=== PATIENT | male | born 1980 | race Caucasian/White ===

== ENCOUNTER 2017-01-07 11:31 | Inpatient (IN) | payer OTHER ==
[~2017-01-07] VITALS: Ht 182.9 cm; Wt 97.5 kg
--- NOTE | 2017-01-07 18:00 | NUR ---
Pre-admission Note: Patient is seen intake office at this time. Appears anxious. Alert and oriented x 4. Verbally responsive. Able to answer questions regarding the admission process appropriately. Able to verbalize understanding of the admission process and protocol. Reports NKA. Reports seizure 2 history, last one was 2 weeks ago. Patient was educated on the policies and procedures of the unit. VS: BP 153/117, Pulse 106, Temp 98.9, RR 16, O2 sat at RA 98%. Patient verbalizes complains of anxiety and nervousness. Reassurance provided and support provided. Notified MD Padgett of patient's pre-admission condition.
--- NOTE | 2017-01-07 18:40 | NUR ---
Body and Skin Check/MD Communication: Body search done. No contraband was found. Patient ambulated into the unit at this time. Skin check done. No skin breakdown noted. No lesions. No rashes noted. CIWA 11 upon arrival in the unit. Dr. Padgett was called. Awaiting call back.
--- NOTE | 2017-01-07 18:50 | NUR ---
Admission Note: Patient is a 36 year old male admitted for ETOH dependence under the care of Dr. Padgett. Alert and oriented x 4. Verbally responsive. Able to make needs known. Respirations even and unlabored. No SOB noted. Skin warm and dry to touch. Abdomen soft and non-distended. BS (+) in all 4 quadrants. No complains of N/V/D or constipation noted. Voids independently. Able to provide urine for UDS. Patient reports NKA. Has had a seizure, last one was 2 weeks ago and was sent to [facility] for less than 24 hours. Patient states that he forgot the name of the medication he was prescribed. Denies any history of substance abuse in the family. Denies any past medical hx. Patient reports that this is his first time in detox. " Substance Use: 1. ETOH (vodka) - since 14 years old. Patient drinks 750cc of Vodka a day for the past year. Last use was on 01/06/2017, 750cc of Vodka MD Padgett evaluated the patient in the intake office. Will continue to monitor. Safety precautions in place. On fall and seizure precautions. Addendum: 01/08/17 at 0942 by KATHLEEN HARE LVN Patient denies having a PCP.
--- NOTE | 2017-01-07 18:53 | NUR ---
End of Shift Notes: Patient is a 36 year old male admitted for ETOH dependence. CIWA 11 upon admission. New orders received from MD Padgett to receive Clonidine 0.1mg PO and Ativan 2 mg PO x 1 now. Orders noted and carried out.
[2017-01-07] MEDS ORDERED: LORAZEPAM 1 MG TABLET PO ONE (19:00)
[2017-01-07] MEDS ORDERED: CLONIDINE HCL 0.1 MG TABLET PO ONE (19:00)
--- NOTE | 2017-01-07 19:00 | NUR ---
MD Communication: UDS in with results pending. Patient's CIWA 11. Per MD, OK to give Ativan 2 mg PO and Clonidine 0.1mg PO now. Orders noted and carried out.
--- NOTE | 2017-01-07 19:03 | NUR ---
Ativan 2 mg PO and Clonidine 0.1mg PO given: CIWA 11 presented with anxiety, gross tremors and agitation. Medicated patient with Ativan 2 mg PO and Clonidine 0.1mg Po as ordered. Will monitor for effectiveness.
--- NOTE | 2017-01-07 19:04 | NUR ---
Start of shift note Received report from day shift nurse. Pt is a 36 yo male, A+Ox4, presenting to [facility] for ETOH dependence. Pt has NKA, is on Full code status, and on Regular diet. Pt has HX of Seizure 2 weeks ago. Pt is on Fall and Seizure precautions. Awaiting taper medication orders from MD but Pt is on PRN medications for the meantime. No s/s of distress noted at this time. Respirations even and unlabored. Will continue to monitor.
[2017-01-07 19:14] LABS: *AMPHETAMINE, URINE NEGATIVE (NEGATIVE); *BARBITURATE, URINE NEGATIVE (NEGATIVE); *CANNABINOID, URINE NEGATIVE (NEGATIVE); *COCCAINE, URINE NEGATIVE (NEGATIVE); *OPIATE, URINE POSITIVE (NEGATIVE); *PHENCYCLIDINE SCREEN,URINE NEGATIVE (NEGATIVE)
[2017-01-07] MEDS ORDERED: THIAMINE HCL 200 MG/2 ML VIAL IM ONE (19:15)
[2017-01-07] MEDS ORDERED: MIRALAX 17 GM POWD.PACK PO PRN (19:15)
[2017-01-07] MEDS ORDERED: LORAZEPAM 1 MG TABLET PO PRN ×2 (19:15)
[2017-01-07] MEDS ORDERED: diphenhydrAMINE 50 MG CAPSULE PO PRN (19:15)
[2017-01-07] MEDS ORDERED: ONDANSETRON 4 MG/2 ML VIAL IM PRN (19:15)
[2017-01-07] MEDS ORDERED: IBUPROFEN 400 MG TABLET PO PRN (19:15)
[2017-01-07] MEDS ORDERED: MAGNESIUM HYDROXIDE 30 ML LIQUID UDC PO PRN (19:15)
[2017-01-07] MEDS ORDERED: CLONIDINE HCL 0.1 MG TABLET PO PRN (19:15)
[2017-01-07] MEDS ORDERED: ONDANSETRON ODT 4 MG TAB.RAPDIS SL PRN (19:15)
[2017-01-07] MEDS ORDERED: LORAZEPAM 2 MG/1 ML VIAL IM PRN (19:15)
[2017-01-07] MEDS ORDERED: MAG HYDROX/AL HYDROX/SIMETH 30 ML LIQUID UDC PO PRN (19:15)
[2017-01-07] MEDS ORDERED: LOPERAMIDE HCL 2 MG CAPSULE PO PRN ×2 (19:15)
[2017-01-07] MEDS ORDERED: DICYCLOMINE HCL 20 MG TABLET PO PRN (19:15)
--- NOTE | 2017-01-07 20:00 | NUR ---
PRN Ativan and Clonidine Reassessment Medications effective. Pt expresses a reduction in anxiety. No s/s of ASE/distress noted at this time. Respirations even and unlabored. Will continue to monitor.
[2017-01-07 20:01] LABS: BASOPHILS # (AUTO) 0.1 K/uL (0.0-8.0); BASOPHILS % (AUTO) 1.3 % (0.0-2.0); EOSINOPHILS % (AUTO) 0.7 % (0.0-7.0); HEMOGLOBIN 14.9 G/DL (14.0-18.0); LYMPHOCYTES # (AUTO) 2.3 K/UL (0.8-4.8); LYMPHOCYTES % (AUTO) 32.7 % (20.5-51.5); MEAN CORPUSCULAR HEMOGLOBIN 33.8 UUG (27.0-31.0); MEAN CORPUSCULAR HGB CONC 34 g/dL (32.0-37.0); MEAN CORPUSCULAR VOLUME 100.1 FL (82.0-92.0); MONOCYTES # (AUTO) 0.6 K/UL (0.1-1.30); MONOCYTES % (AUTO) 8.9 % (0.0-11.0); NEUTROPHILS # (AUTO) 3.9 K/UL (1.8-8.9); NEUTROPHILS % (AUTO) 56.4 % (38.5-71.5); PLATELET COUNT (AUTO) 187 K/UL (150-450); WHITE BLOOD COUNT (AUTO) 6.9 K/UL (4.0-11.2)
[2017-01-07] MEDS ORDERED: ALBUTEROL SULFATE 2.5 MG/ 0.5 ML NEBU NEB PRN (20:15)
[2017-01-07 20:16] VITALS: BP 155/110
[2017-01-07 20:23] LABS: BILIRUBIN,TOTAL 0.5 mg/dL (0.2-1.0); CREATININE 1.1 mg/dL (0.6-1.3); MAGNESIUM 1.7 mg/dL (1.8-2.4); POTASSIUM 4.3 mmol/L (3.5-5.1); TOTAL PROTEIN, SERUM 6.7 g/dL (6.4-8.2)
[2017-01-07 20:25] LABS: THYROID STIMULATING HORMONE 18.382 mIU/mL (0.358-3.740)
[2017-01-07] MEDS ORDERED: LORAZEPAM 1 MG TABLET PO SCH (21:00)
[2017-01-08] VITALS (8 sets, daily range): BP systolic 136–160; BP diastolic 98–123
--- NOTE | 2017-01-08 04:04 | NUR ---
PRN Clonidine Pt noted with b/p of 155/114. PRN Clonidine given and tolerated well. Will reassess within 1 HR. Will continue to monitor.
--- NOTE | 2017-01-08 05:00 | NUR ---
PRN Clonidine Reassessment Medication ineffective. Pt continue to persist with HTN. Md notified. No s/s of ASE/distress noted at this time. Respirations even and unlabored. Will continue to monitor.
[2017-01-08] MEDS ORDERED: MAGNESIUM OXIDE 400 MG TABLET PO ONE (06:00)
--- NOTE | 2017-01-08 07:00 | NUR ---
End of shift note Pt is a 36 yo male, A+Ox4, presenting to [facility] for ETOH dependence. Pt has NKA, is on Full code status, and on Regular diet. Pt has HX of Seizure 2 weeks ago. Pt is on Fall and Seizure precautions. Pt is on 5 day Ativan taper, tolerated well. Pt was given PRN Clonidine @0404. Pt slept for a total of 9 HRS. Last CIWA: 3 @0400. No s/s of distress noted at this time. Respirations even and unlabored. Will endorse to day shift nurse.
--- NOTE | 2017-01-08 07:01 | NUR ---
Start of Shift Notes: Received patient in his room. Alert and oriented x 4. Verbally responsive. Able to make his needs known. Respirations even and unlabored. No SOB noted. Skin warm and dry to touch. Abdomen soft and non-distended with (+) BS in all 4 quadrants. No complains of N/V/D or constipation noted. No complains of abdominal discomfort. Bladder non-distended. Voids independently. Ambulatory ad davin with steady gait. Patient is a 27 year old male admitted for ETOH dependence who was placed on a 5-day Ativan taper as ordered. Denies any past medical hx. NKA. FULL CODE. Regular diet. on fall and seizure precautions. Educated patient on his current plan of care for the day and his medication regimen. Encouraged oral fluid intake and encouraged group participation to learn new skills to prevent relapse. BP monitored closely due to elevated BP during the night. PRN Clonidine was given during the night. Slept for 9 hours. Will continue to monitor closely. Addendum: 01/08/17 at 0728 by KATHLEEN HARE LVN Error in charting. Patient is a 36 years old. Not 27 years old.
[2017-01-08] MEDS: THIAMINE HCL 100 MG TABLET PO SCH (08:06)
[2017-01-08] MEDS: MULTIVITAMINS,THERAPEUTIC TABLET PO SCH (08:06)
[2017-01-08] MEDS: LORAZEPAM 1 MG TABLET PO SCH ×3 (08:06→21:36)
[2017-01-08] MEDS: FOLIC ACID 1 MG TABLET PO SCH (08:06)
--- NOTE | 2017-01-08 08:42 | NUR ---
MD Communication: Patient's BP 158/116 with pulse of 100. CIWA 10. Noted with gross tremors, facial flushing, anxiety and mild agitation. Denies any complains of chest tightness, pain or discomfort. Denies headache or dizziness. Notified Dr. Padgett. per MD, he will come and see the patient and will alter medication regimen. Will continue to monitor.
[2017-01-08] MEDS ORDERED: TUBERCULIN,PURIF.PROT.DERIV. 5 TU/0.1 ML TEST ID ONE (09:00)
--- NOTE | 2017-01-08 09:42 | NUR ---
UDS result: Patient's UDS upon admission (+) for opiates and benzodiazepines. Per patient, he took x 1 tab of Tylenol #3 hours before his flight here in [place] and was given medication to help him with his withdrawals but does not recall name and strength. Addendum: 01/08/17 at 1009 by KATHLEEN HARE LVN MD Lorin fajardo
--- NOTE | 2017-01-08 10:12 | NUR ---
MD Communication: MD Padgett made aware of patient's TSH level of 18.382 and other abnormal labs. MD fajardo.
[2017-01-08] MEDS: hydrALAZINE HCL 25 MG TABLET PO PRN (12:45)
--- NOTE | 2017-01-08 12:45 | NUR ---
Hydralazine 25mg PO given: Patient's BP 160/118. Pulse 100. Patient denies any complains of chest pain, dizziness, lightheadedness or blurred vision. Denies any complains of posterior neck pain. MD aware of patient's trending BP. Per MD, it is expected due to patient is detoxing from ETOH. New orders obtained. Hydralazine 25mg PO given as ordered. Will monitor for effectiveness.
--- NOTE | 2017-01-08 13:45 | NUR ---
Re-assessment: BP 145/99, Pulse 90. PRN Hydralazine was effective in reducing patient's blood pressure.
[2017-01-08] MEDS: CLONIDINE HCL 0.1 MG TABLET PO SCH ×2 (14:04→21:36)
--- NOTE | 2017-01-08 17:17 | NUR ---
MD Communication: Patient's BP 157/123, Pulse 128. Patient denies any complains of chest pain, chest tightness, blurred vision or headache or dizziness. Patient's CIWA 4. Reports feeling of being mildly anxious. Notified Dr. Padgett. Per MD, do STAT EKG at this time.
[2017-01-08] MEDS ORDERED: DILTIAZEM HCL 30 MG TABLET PO ONE (17:30)
[2017-01-08] MEDS ORDERED: LORAZEPAM 1 MG TABLET PO ONE (17:30)
--- NOTE | 2017-01-08 17:40 | NUR ---
Cardizem 30mg/Ativan 2 mg PO x 1 given: Patient was given Cardizem 30 mg and Ativan 2 mg PO x 1 now due to elevated BP and elevated HR. Relaxation techniques and deep breathing exercises were encouraged. Will continue to monitor closely.
--- NOTE | 2017-01-08 18:07 | NUR ---
MD Communication: EKG results were showed to Dr. Padgett. IZABEL arroyo. Will continue to monitor the patient.
--- NOTE | 2017-01-08 18:40 | NUR ---
Re-assessment: BP re-checked. BP is now 141/110 and pulse is 114. Patient is resting in bed. Denies any complains of pain, headache, dizziness, blurred vision or chest pain.
--- NOTE | 2017-01-08 18:49 | NUR ---
End of Shift Notes: Patient is a 36 year old male admitted for ETOH dependence who was placed on a 5-day Ativan taper as ordered. Patient is tolerating taper well. No adverse reactions noted. Denies any past medical hx. Prior to admission, patient was using 750cc of Vodka a day for the past year. VS monitored closely. Noted patient with consistent elevated BP throughout the shift requiring to be medicated with Hydralazine 25mg PO at 1245 and extra dose of Ativan 2 mg PO and Cardizem 30 mg PO at 1740 with as ordered for elevated BP with help after 1 hour. Withdrawal symptoms closely monitored. Initial CIWA 10 patient presented with gross tremors, flushing, anxiety and agitation. Last CIWA 4. Per patient, Ativan has been helping him with his withdrawal symptoms. Patient was unable to participate in group and activity sessions due to his withdrawal symptoms, however compliant with care and treatment. Safety precautions in place. All needs met and attended. Will continue to monitor closey.
--- NOTE | 2017-01-08 19:07 | NUR ---
Start of shift note Received report from day shift nurse. Pt is a 36 yo male, A+Ox4, presenting to [facility] for ETOH dependence. Pt has NKA, is on Full code status, and on Regular diet. Pt has HX of Seizure 2 weeks ago. Pt is on Fall and Seizure precautions. Pt is on 5 day Ativan taper, tolerated well. No s/s of distress noted at this time. Respirations even and unlabored. Will continue to monitor.
[2017-01-08] MEDS: LOSARTAN POTASSIUM 50 MG TABLET PO SCH (21:36)
[2017-01-09 00:18] VITALS: BP 127/89
[2017-01-09] MEDS: hydrALAZINE HCL 25 MG TABLET PO PRN (04:49)
--- NOTE | 2017-01-09 04:51 | NUR ---
PRN Motrin and Hydralazine Pt c/o toothache and noted with b/p = 135/105. PRN Motrin and Hydralazine given and tolerated well. Will reassess within 1 HR. Will continue to monitor.
[2017-01-09 04:53] VITALS: BP 135/105
--- NOTE | 2017-01-09 05:50 | NUR ---
PRN Motrin and Hydralazine Reassessment Medications effective. Pt expresses reduction in pain and b/p= 127/87. No s/s of ASE/distress noted at this time. Respirations even and unlabored. Will continue to monitor.
--- NOTE | 2017-01-09 06:58 | NUR ---
End of shift note Pt is a 36 yo male, A+Ox4, presenting to [facility] for ETOH dependence. Pt has NKA, is on Full code status, and on Regular diet. Pt has HX of Seizure 2 weeks ago. Pt is on Fall and Seizure precautions. Pt is on 5 day Ativan taper, tolerated well. Pt was given PRN Motrin and Hydralazine @0451. Pt slept for a total of 6 HRS. Last CIWA: 1 @0400. No s/s of distress noted at this time. Respirations even and unlabored. Will endorse to day shift nurse.
--- NOTE | 2017-01-09 07:00 | NUR ---
Start of Shift Notes: Received patient in his room. Alert and oriented x 4. Verbally responsive. Able to make his needs known. Respirations even and unlabored. No SOB noted. Skin warm and dry to touch. Abdomen soft and non-distended with (+) BS in all 4 quadrants. No complains of N/V/D or constipation noted. No complains of abdominal discomfort. Bladder non-distended. Voids independently. Ambulatory ad davin with steady gait. Patient is a 36 year old male admitted for ETOH dependence who was placed on a 5-day Ativan taper as ordered. Denies any past medical hx. NKA. FULL CODE. Regular diet. on fall and seizure precautions. Educated patient on his current plan of care for the day and his medication regimen. Encouraged oral fluid intake and encouraged group participation to learn new skills to prevent relapse. BP monitored closely due to elevated BP during the night. PRN Hydralazine and Motrin given during the night. Slept for 2 hours. Will continue to monitor closely.
[2017-01-09 08:00] VITALS: BP 141/105
[2017-01-09 08:09] LABS: HEPATITIS B SURFACE AG Negative (Negative)
[2017-01-09] MEDS: LOSARTAN POTASSIUM 50 MG TABLET PO SCH (08:25)
[2017-01-09] MEDS: LORAZEPAM 1 MG TABLET PO SCH ×4 (08:25→20:34)
[2017-01-09] MEDS: CLONIDINE HCL 0.1 MG TABLET PO SCH ×3 (08:25→20:34)
[2017-01-09] MEDS: THIAMINE HCL 100 MG TABLET PO SCH (08:25)
[2017-01-09] MEDS: FOLIC ACID 1 MG TABLET PO SCH (08:25)
[2017-01-09] MEDS: MULTIVITAMINS,THERAPEUTIC TABLET PO SCH (08:25)
[2017-01-09 08:30] LABS: BILIRUBIN,DIRECT 0.1 mg/dL (0.0-0.2); BILIRUBIN,TOTAL 0.6 mg/dL (0.2-1.0); CREATININE 1.1 mg/dL (0.6-1.3); POTASSIUM 4.6 mmol/L (3.5-5.1); TOTAL PROTEIN, SERUM 7.1 g/dL (6.4-8.2)
[2017-01-09 08:55] LABS: THYROID STIMULATING HORMONE 11.013 mIU/mL (0.358-3.740)
[2017-01-09] MEDS ORDERED: BENZOCAINE ORAL CARE 12 ML BOTTLE MM PRN (10:45)
--- NOTE | 2017-01-09 10:51 | NUR ---
Clinician encouraged client to attend groups. Client said he would.
[2017-01-09 12:00] VITALS: BP 137/98
[2017-01-09] MEDS: AMOXICILLIN TRIHYDRATE 500 MG CAPSULE PO SCH ×2 (14:50→20:34)
--- NOTE | 2017-01-09 14:51 | NUR ---
New orders: Patient was started on Amoxicillin as ordered for dental infection.
[2017-01-09 16:00] VITALS: BP 138/96
--- NOTE | 2017-01-09 18:56 | NUR ---
End of Shift Notes: Patient is a 36 year old male admitted for ETOH dependence who was placed on a 5-day Ativan taper as ordered. Patient is tolerating taper well. No adverse reactions noted. Denies any past medical hx. Prior to admission, patient was using 750cc of Vodka a day for the past year. VS monitored closely. Withdrawal symptoms closely monitored. Initial CIWA 6 patient presented with gross tremors, flushing, and anxiety . Last CIWA 3. Started on oral ATB ointment for possible dental infection. Tolerated well. No adverse reactions noted. Per patient, Ativan has been helping him with his withdrawal symptoms. Patient was unable to participate in group and activity sessions due to his withdrawal symptoms, however compliant with care and treatment. Safety precautions in place. All needs met and attended. Will continue to monitor closey.
[2017-01-09 20:20] VITALS: BP 138/101
[2017-01-09] MEDS: IBUPROFEN 800 MG TABLET PO PRN (20:34)
[2017-01-09] MEDS: LACTOBACILLUS RHAMNOSUS GG 1 EACH CAPSULE PO SCH (20:34)
--- NOTE | 2017-01-09 20:34 | NUR ---
PRN Motrin Pt c/o toothache 01/20. PRN Motrin given and tolerated well. Will reassess within 1 HR. Will continue to monitor.
--- NOTE | 2017-01-09 21:30 | NUR ---
PRN Motrin Reassessment Medication effective. Pt expresses reduction in toothache. No s/s of ASE/distress noted at this time. Respirations even and unlabored. Will continue to monitor.
[2017-01-10 00:27] VITALS: BP 122/77
[2017-01-10] MEDS: ACETAMINOPHEN 325 MG TABLET PO PRN (04:03)
--- NOTE | 2017-01-10 04:04 | NUR ---
PRN Tylenol Pt c/o toothache and requested for PRN Tylenol. Medication given and tolerated well. Will reassess within 1 HR. Will continue to monitor.
[2017-01-10 04:32] VITALS: BP 129/101
--- NOTE | 2017-01-10 05:01 | NUR ---
PRN Tylenol Reassessment Medication effective. Pt expresses reduction of toothache. No s/s of ASE/distress noted at this time. Respirations even and unlabored. Will continue to monitor.
--- NOTE | 2017-01-10 06:56 | NUR ---
End of shift note Pt is a 36 yo male, A+Ox4, presenting to [facility] for ETOH dependence. Pt has NKA, is on Full code status, and on Regular diet. Pt has HX of Seizure. Pt is on Fall and Seizure precautions. Pt is on 5 day Ativan taper, tolerated well. Pt was given PRN Motrin @2033 and PRN Tylenol @0404. Pt slept for a total of 6 HRS. Last CIWA: 2 @0400. No s/s of distress noted at this time. Respirations even and unlabored. Will endorse to day shift nurse.
--- NOTE | 2017-01-10 07:50 | NUR ---
START OF SHIFT Rcvd endorsement from ongoing nurse, clients is in bed, he presents with depressed mood, flat affect, skin moist/warm to touch, flushed face, he reports restless legs, stomach cramps and fatigue. Encouraged client to drink fluid as tolerated to facilitate detox. Encourage client to attend group therapy for skills to maintain sobriety. PRN Motrin and Tylenol for toothache, noted effective. Client slept 6 hrs. Client is on 4th of 5 day Ativan taper for alcohol withdrawal, tolerating well. Last CIWA 2. NKDA, full code, regular diet. Call light within reach. Side rails x 2 up/padded. Will continue to monitor client.
[2017-01-10 08:18] VITALS: BP 131/95
[2017-01-10] MEDS: THIAMINE HCL 100 MG TABLET PO SCH (08:21)
[2017-01-10] MEDS: IBUPROFEN 800 MG TABLET PO PRN ×2 (08:21→20:58)
[2017-01-10] MEDS: FOLIC ACID 1 MG TABLET PO SCH (08:21)
[2017-01-10] MEDS: MULTIVITAMINS,THERAPEUTIC TABLET PO SCH (08:21)
--- NOTE | 2017-01-10 08:21 | NUR ---
PRN Motrin 800mg Client reports pain 10/10 @ left lower molar, client is on Antibiotic PO therapy Amoxicillin 500mg TID.
[2017-01-10] MEDS: AMOXICILLIN TRIHYDRATE 500 MG CAPSULE PO SCH ×3 (08:22→20:59)
[2017-01-10] MEDS: LOSARTAN POTASSIUM 50 MG TABLET PO SCH (08:22)
[2017-01-10] MEDS: LORAZEPAM 1 MG TABLET PO SCH ×3 (08:22→20:59)
[2017-01-10] MEDS: LACTOBACILLUS RHAMNOSUS GG 1 EACH CAPSULE PO SCH ×2 (08:22→20:59)
[2017-01-10] MEDS: CLONIDINE HCL 0.1 MG TABLET PO SCH ×3 (08:22→21:00)
--- NOTE | 2017-01-10 09:00 | NUR ---
Zero induration noted at R F/A TB site.
--- NOTE | 2017-01-10 09:21 | NUR ---
Reassessment PRN Motrin 800mg Client reports pain 3/10 @ left lower molar, but tolerable.
[2017-01-10 12:00] VITALS: BP 139/90
[2017-01-10 16:55] VITALS: BP 141/89
--- NOTE | 2017-01-10 18:34 | NUR ---
END OF SHIFT Will endorse client to incoming nurse, client continues on 4 out of 5 day Ativan taper, to alleviate withdrawal symptoms of withdrawal from alcohol. Last CIWA 6. Client with anxiety, irritability, chills, fatigue, flushed face. Client continue to present with anxious mood. Client was compliant with group therapy. Client is fully ambulatory. He continues on antibiotic therapy Amoxicillin 500mg TID PO for left lower molar abscess, tolerating well. Adequate intake 2800mL, void x 6, stool x 1. Call light within reach. Safety measures rendered and all needs met.
--- NOTE | 2017-01-10 19:55 | NUR ---
START OF SHIFT NOTE Pt is a 36 y/o male admitted for ETOH dependence and use. Pt has NKA but reported a PMH of seizure r/t w/d (2wks ago). Per day shift nurse pt was placed on a 5 day Ativan taper ( day 4) and is tolerating medication well with no s/e or a/r reported. Per day shift nurse pt's blood pressure has been trending high, but pt has a routine order for Clonidine 0.1 mg PO. Pt is also on Amoxicillin ATB PO therapy for tooth abscess. Pt received Motrin 800 mg PO PRN during the shift. Last CIWA:6 (1600). At this time pt is in his room. Pt's skin is dry and intact. Lung auscultations are clear in all lobes, bowel sounds are present in all 4 quadrants, skin turgor indicates proper hydration, and PERRLA noted. Pt appears calm, but slight tremors are also noted. Pt stated " I'm doing good, and I feel fine except for this tooth. Can I have some Motrin or something with my meds after I come up from smoking?" Pt denies any further pain/discomfort. Pt was encouraged to notify staff of any changes in condition or of concerns. Pt verbalized an understanding. All safety measures in place. Will continue to monitor.
[2017-01-10 20:00] VITALS: BP 148/104
--- NOTE | 2017-01-10 20:58 | NUR ---
MOTRIN PRN ADMINISTRATION Pt stated " My tooth is aching. Like a 5/10 right now. Can I get something?" Motrin 800 mg PO PRN was given. Will monitor for effectiveness.
--- NOTE | 2017-01-10 21:58 | NUR ---
WILLEM PRN REASSESSMENT Pt stated " It's better now. Probably less than a 2." PRN effective. Will continue to monitor.
--- NOTE | 2017-01-11 | NUR ---
VITALS REFUSED/ CIWA DEFERRED Pt refused to have vitals taken at this time. Pt was encouraged x3 with risks and benefits explained, but the pt still refused. Pt is currently sleeping with no signs of discomfort/distress noted. Breathing is even and unlabored. Respirations 16 breaths per minute. CIWA assessment deferred until pt is awake. All safety measures in place. Will continue to monitor.
[2017-01-11] MEDS: hydrALAZINE HCL 25 MG TABLET PO PRN (02:45)
[2017-01-11] MEDS: ACETAMINOPHEN 325 MG TABLET PO PRN ×3 (02:45→21:09)
--- NOTE | 2017-01-11 02:45 | NUR ---
HYDRALAZINE AND TYLENOL PRN ADMINISTRATION Pt's blood pressure is 140/100. Pt denies any headache, nausea/vomiting, blurred vision, and dizziness. Pt stated " I'm okay but my tooth is starting to hurt again. That's what woke me up. Can I get some Tylenol ?" Hydralazine 25 mg PO PRN and Tylenol 650 mg PO PRN given. All safety measures in place. Will continue to monitor. Addendum: 01/11/17 at 0616 by CARIDAD JUARES LVN Pt rated tooth pain 12/21.
--- NOTE | 2017-01-11 03:45 | NUR ---
HYDRALAZINE AND TYLENOL PRN REASSESSMENT Pt stated " My tooth is feeling a little better. The pain is like a 3/10." Pt's blood pressure at this time is 136/92. PRNS effective. Will continue to monitor.
[2017-01-11 04:00] VITALS: BP_SYST 136; BP_SYST 140; BP_DIAS 100; BP_DIAS 90
--- NOTE | 2017-01-11 07:27 | NUR ---
END OF SHIFT NOTE Pt is a 36 y/o male admitted for ETOH dependence and use. Pt has NKA but reported a PMH of seizure r/t w/d (2wks ago). Pt was placed on a 5 day Ativan taper ( day 5) and is tolerating medication well with no s/e or a/r reported. Pt is also on Amoxicillin ATB PO therapy for tooth abscess. Pt received Motrin 800 mg PO PRN, Tylenol 650 mg PO PRN, and Hydralazine 25 mg PO PRN during the shift. Last CIWA:3 (0400). Pt slept for a total of 4 hours. All safety measures in place. Endorsed to the oncoming nurse.
--- NOTE | 2017-01-11 07:46 | NUR ---
START OF SHIFT REPORT Patient is alert and orientated X4. Patient is sitting up in bed with respirations even and unlabored. Patient is on a 5 day Ativan taper and amoxicillin for a tooth problem. Both tolerated well. Patients last CIWA 3 slept 4 hours last night per night nurse. Patient was given Motrin, Tylenol, and Hydralazine PRN last per night nurse with effectiveness. patient is on seizure precaution, all safety measures in place; call light within reach, bed locked and in lowest position, and side rails padded. All needs have been met right now. Will continue to monitor patient
[2017-01-11 08:00] VITALS: BP 146/106
[2017-01-11] MEDS: FOLIC ACID 1 MG TABLET PO SCH (08:27)
[2017-01-11] MEDS: LORAZEPAM 1 MG TABLET PO SCH ×2 (08:28→21:09)
[2017-01-11] MEDS: CLONIDINE HCL 0.1 MG TABLET PO SCH ×3 (08:28→21:13)
[2017-01-11] MEDS: MULTIVITAMINS,THERAPEUTIC TABLET PO SCH (08:28)
[2017-01-11] MEDS: LACTOBACILLUS RHAMNOSUS GG 1 EACH CAPSULE PO SCH ×2 (08:28→21:11)
[2017-01-11] MEDS: LOSARTAN POTASSIUM 50 MG TABLET PO SCH (08:28)
[2017-01-11] MEDS: THIAMINE HCL 100 MG TABLET PO SCH (08:28)
[2017-01-11] MEDS: AMOXICILLIN TRIHYDRATE 500 MG CAPSULE PO SCH ×3 (08:28→21:11)
[2017-01-11] MEDS: IBUPROFEN 800 MG TABLET PO PRN ×2 (08:40→14:52)
--- NOTE | 2017-01-11 08:40 | NUR ---
PRN MEDICATION Motrin given for patient complaining to tooth pain, will continue to asses patient
--- NOTE | 2017-01-11 09:10 | NUR ---
PRN REASSESSMENT patient states "pain has decreased a little". will continue to monitor patient.
[2017-01-11 12:00] VITALS: BP 137/96
--- NOTE | 2017-01-11 13:45 | NUR ---
PRN MEDICATION patient complaining of tooth pain. Gave Tylenol 650mg will continue to monitor
--- NOTE | 2017-01-11 14:15 | NUR ---
PRN REASSESSMENT patient states his tooth pain has decreased a little. will continue to monitor
--- NOTE | 2017-01-11 14:54 | NUR ---
PRN MOTRIN Motrin given for tooth pain, will continue to monitor.
--- NOTE | 2017-01-11 15:25 | NUR ---
PRN REASSESSMENT Patient reports feeling feeling better. will continue to monitor.
[2017-01-11 16:00] VITALS: BP 143/103
[2017-01-11] MEDS: GABAPENTIN 300 MG CAPSULE PO SCH ×2 (16:18→21:09)
--- NOTE | 2017-01-11 18:31 | NUR ---
END OF SHIFT NOTE Patient is alert and orientated X 4. Patients blood pressure has been slightly elevated throughout the day but lowered with scheduled BP medications. No symptoms reported. Patient has completed his 5 day Ativan taper. Last CIWA 2. Patient received Motrin X2 and Tylenol X1 for tooth pain. PRN medications were effective. Patient has participated in group and activities today. Patient has a positive attitude towards his future and is looking forward to being discharge on Friday. Patient is on Amoxicillin. All safety measures in place, call light within reach, bed locked and in lowest position. All needs have been met. will endorse to oncoming night nurse.
--- NOTE | 2017-01-11 18:35 | NUR ---
END OF SHIFT NOTE Patient is alert and orientated X4. Vital signs have been stable throughout the day. Last COWS 3. Patient completed his Subutex taper yesterday. Patient was seen by Dr. Padgett and has complied with MDs orders and medication treatment plan. Patient was complaining of GERD symptoms, Dr. Padgett put him on Pepcid. Patient received Ativan 1mg PRN for increased anxiety with effectiveness. Patient has participated in group and activities today. Patient is looking forward to being discharge on Friday to a treatment center. All safety measures in place, call light within reach, bed locked and in lowest position. All needs have been met. Will endorse to cox monett night nurse. Addendum: 01/11/17 at 1836 by ALFREDO THAYER RN wrong patient
--- NOTE | 2017-01-11 19:15 | NUR ---
START OF SHIFT Received 36 year old male patient admitted on 01/07/17 for ETOH dependency. Pt is full code with NKA. He reports a PMHx of seizure 2 weeks ago d/t withdrawal. Pt reports using ETOH(vodka) 750 mL daily for 1 year. Last dose was 750 mL on 01/06/17. Pt was placed on 5 day Ativan taper. Pt received his last dose today and tolerated well. Per endorsement, pt received PRN Motrin x2, and Tylenol. Pt receiving Amoxicillin for toothache. Pt is alert and oriented x4, breathing is even and unlabored, safety measures in place. Will continue to monitor.
[2017-01-11 20:00] VITALS: BP 142/101
[2017-01-11] MEDS ORDERED: LOSARTAN POTASSIUM 50 MG TABLET PO ONE (21:00)
--- NOTE | 2017-01-11 21:09 | NUR ---
PRN TYLENOL Pt complains of toothache 01/20. PRN Tylenol administered as ordered. Breathing is even and unlabored, safety measures in place. Will continue to monitor effectiveness.
--- NOTE | 2017-01-11 22:09 | NUR ---
PRN TYLENOL REASSESSMENT Pt reports Tylenol is effective in relieving his toothache 10/21. Breathing is even and unlabored, safety measures in place. Will continue to monitor.
[2017-01-12] VITALS: BP 106/79
--- NOTE | 2017-01-12 | NUR ---
CIWA DEFERRED 0000 CIWA deferred d/t pt is lying in bed with eyes closed noted to be asleep. Respirations 16, breathing is even and unlabored, safety measures in place. Will continue to monitor.
[2017-01-12] MEDS: IBUPROFEN 800 MG TABLET PO PRN (02:16)
--- NOTE | 2017-01-12 02:16 | NUR ---
PRN MOTRIN Pt complains of toothache 12/21. PRN Motrin administered as ordered. Breathing is even and unlabored, safety measures in place. Will monitor effectiveness.
--- NOTE | 2017-01-12 03:16 | NUR ---
PRN MOTRIN REASSESSMENT PRN medication effective. Pt is lying in bed with eyes closed noted to be asleep. No facial grimacing noted. Breathing is even and unlabored, safety measures in place. Will monitor.
[2017-01-12 04:00] VITALS: BP 135/86
--- NOTE | 2017-01-12 04:00 | NUR ---
CIWA DEFERRED 0400 CIWA deferred d/t pt is lying in bed with eyes closed noted to be asleep. Respirations 16, breathing is even and unlabored, safety measures in place. Will continue to monitor.
--- NOTE | 2017-01-12 07:14 | NUR ---
END OF SHIFT Pt is a 36 year old male patient admitted on 01/07/17 for ETOH dependency. Pt is full code with NKA. He reports a PMHx of seizure 2 weeks ago d/t withdrawal. At 2018 he received PRN Tylenol, and 215 he received PRN Motrin. He slept a total of 5 hrs, Intake: 1550mL, Void: x3, BM: x1, CIWA:1. Pt remains alert and oriented x4, breathing is even and unlabored, safety measures in place. Will endorse to oncoming shift.
--- NOTE | 2017-01-12 07:45 | NUR ---
START OF SHIFT Rcvd endorsement from ongoing nurse, clients is pacing in room, he is a/o x 4, he presents with anxious mood, flat affect, he denies any N/V/D. He denies any SI/HI. Client is emotional, he stated, "I want to call my oldest son, but I am afraid; he is too angry at me because of my drinking problem."life underwriter allowed client to express his feelings and offered support. he reports restless legs, stomach cramps and fatigue, client reports a BM x 1 on 01/11/17. Encouraged client to drink fluid as tolerated to facilitate detox. Encourage client to attend group therapy for skills to maintain sobriety. PRN Motrin and Tylenol for toothache, noted effective. Client slept 5 hrs. Client is on last of 5 day Ativan taper for alcohol withdrawal, tolerating well. Last CIWA 1 @ 1999. NKDA, full code, regular diet. Call light within reach. Side rails x 2 up/padded. Will continue to monitor client.
[2017-01-12] MEDS: THIAMINE HCL 100 MG TABLET PO SCH (08:20)
[2017-01-12] MEDS: AMOXICILLIN TRIHYDRATE 500 MG CAPSULE PO SCH ×3 (08:20→20:45)
[2017-01-12] MEDS: MULTIVITAMINS,THERAPEUTIC TABLET PO SCH (08:20)
[2017-01-12] MEDS: LACTOBACILLUS RHAMNOSUS GG 1 EACH CAPSULE PO SCH ×2 (08:20→20:45)
[2017-01-12] MEDS: FOLIC ACID 1 MG TABLET PO SCH (08:21)
[2017-01-12] MEDS: ACETAMINOPHEN 325 MG TABLET PO PRN (08:21)
[2017-01-12] MEDS: GABAPENTIN 300 MG CAPSULE PO SCH ×3 (08:21→20:45)
[2017-01-12] MEDS: CLONIDINE HCL 0.1 MG TABLET PO SCH ×3 (08:21→20:45)
--- NOTE | 2017-01-12 08:21 | NUR ---
PRN Tylenol 650mg Client reports toothache on left lower side 01/20, Tylenol 650mg PO administered. Call light within reach. Will continue to monitor.
[2017-01-12 08:53] VITALS: BP 109/79
[2017-01-12] MEDS ORDERED: LORAZEPAM 1 MG TABLET PO SCH (09:00)
[2017-01-12] MEDS ORDERED: LOSARTAN POTASSIUM 50 MG TABLET PO SCH (09:00)
--- NOTE | 2017-01-12 09:22 | NUR ---
Reassessment PRN Tylenol 650mg Client reports some relief from left lower molar pain 2/10. Client continue to be compliant with antibiotic therapy Amoxicillin 500mg TID for tooth abscess on left lower side.
[2017-01-12] MEDS: KETOROLAC TROMETHAMINE 30 MG INJ IM PRN ×2 (12:36→19:33)
--- NOTE | 2017-01-12 12:36 | NUR ---
PRN Toradol 30mg Inj. Client reports toothache on left lower side 04/22, Toradol 30mg IM administered to R deltoid. Call light within reach. Will continue to monitor..
[2017-01-12 12:53] VITALS: BP 114/77
--- NOTE | 2017-01-12 13:06 | NUR ---
Reassessment PRN Toradol 30mg Inj. Client reports relief from left lower toothache 0/10, Toradol 30mg effective.
[2017-01-12] MEDS ORDERED: GABA-534 PO (14:11)
[2017-01-12] MEDS ORDERED: CLON0.1T14 PO (14:11)
[2017-01-12] MEDS ORDERED: DIPH50CA37 PO (14:11)
[2017-01-12] MEDS ORDERED: IBUP-1957 PO (14:11)
[2017-01-12] MEDS ORDERED: LOSA50TA3 PO (14:11)
[2017-01-12 16:55] VITALS: BP 127/92
[2017-01-12 17:10] LABS: *AMPHETAMINE, URINE NEGATIVE (NEGATIVE); *BARBITURATE, URINE NEGATIVE (NEGATIVE); *CANNABINOID, URINE NEGATIVE (NEGATIVE); *COCCAINE, URINE NEGATIVE (NEGATIVE); *OPIATE, URINE NEGATIVE (NEGATIVE); *PHENCYCLIDINE SCREEN,URINE NEGATIVE (NEGATIVE)
[2017-01-12] MEDS ORDERED: HYDROXYZINE PAMOATE 25 MG CAPSULE PO PRN (18:15)
--- NOTE | 2017-01-12 18:15 | NUR ---
END OF SHIFT Will endorse client to incoming nurse, client completed 5 day Ativan taper, tolerated well. Client is schedule for discharge tomorrow at 0500, he requested medication for anxiety due to his flight, Dr. Padgett notified, he will place order for Vistaril. Last CIWA 3. Client continue to present with anxious mood. Client was compliant with group therapy. Client is fully ambulatory. He continues on antibiotic therapy Amoxicillin 500mg TID PO for left lower molar abscess, tolerating well. PRN Tylenol 650mg PO and Toradol 30mg IM given for ttoache, noted effective. Adequate intake 2900mL, void x 7, stool x 3. Call light within reach. Safety measures rendered and all needs met.
--- NOTE | 2017-01-12 19:15 | NUR ---
START OF SHIFT Received 36 year old male patient admitted on 01/07/17 for ETOH dependency. Pt is full code with NKA. He reports a PMHx of seizure 2 weeks ago d/t withdrawal. Pt reports using ETOH(vodka) 750 mL daily for 1 year. Last dose was 750 mL on 01/06/17. Pt received 5 day Ativan taper and tolerated well. Per endorsement, pt is scheduled to be DC tomorrow to home. He continues on PO ATB for left lower toothache and tolerating well. Pt is alert and oriented x4, breathing is even and unlabored, safety measures in place. Will continue to monitor.
--- NOTE | 2017-01-12 19:33 | NUR ---
PRN TORADOL Pt complains of left lower tooth pain 02/20. PRN Toradol administered as ordered for pain. Breathing is even and unlabored, safety measures in place. Will monitor effectiveness of medication.
[2017-01-12 20:00] VITALS: BP 142/99
--- NOTE | 2017-01-12 20:33 | NUR ---
PRN TORADOL REASSESSMENT PRN medication effective. Pt reports decrease in toothache /10. Breathing is even and unlabored, safety measures in place. Will continue to monitor.
[2017-01-13] VITALS: BP 133/85
--- NOTE | 2017-01-13 | NUR ---
CIWA DEFERRED CIWA deferred d/t pt lying in bed with eyes closed noted to be asleep. Respirations 16, breathing is even and unlabored. Safety measures in place. Will continue to monitor.
[2017-01-13 04:00] VITALS: BP 116/79
[2017-01-13] MEDS: ACETAMINOPHEN 325 MG TABLET PO PRN (04:24)
--- NOTE | 2017-01-13 04:24 | NUR ---
PRN TYLENOL/VISTARIL Pt reports toothache /, and anxiety. Pt noted to be restless in room. PRN Tylenol and Vistaril administered as ordered. Breathing is even and unlabored, safety measures in place.
--- NOTE | 2017-01-13 04:52 | NUR ---
DISCHARGE NOTE Pt is in stable condition, vitals WNL, skin is intact, denies any suicidal or homicidal ideations, all discharge paper work signed and dated, pt was discharged from [facility] on 01/13/17 at 0452. Pt left the building with all of his medications, belongings and prescriptions. notified.
== END 2017-01-13 04:52 | disposition home or self-care (01) | DRG 895 ==
LOC: SRC 17:49
PROVIDERS: ADMIT Internal Medicine; ATTEND Internal Medicine
PROC: HZ2ZZZZ Detoxification Services for Substance Abuse Treatment (ICD-10-PCS; principal; 2017-01-07)
PROC: HZ41ZZZ Group Counseling for Substance Abuse Treatment, Behavioral (ICD-10-PCS; 2017-01-08)
PROC: HZ31ZZZ Individual Counseling for Substance Abuse Treatment, Behavioral (ICD-10-PCS; 2017-01-09)
DX: F10.230 Alcohol dependence with withdrawal, uncomplicated (principal); K70.10 Alcoholic hepatitis without ascites; Y90.9 Presence of alcohol in blood, level not specified; F11.10 Opioid abuse, uncomplicated; F41.9 Anxiety disorder, unspecified; E83.42 Hypomagnesemia; F17.210 Nicotine dependence, cigarettes, uncomplicated; K04.7 Periapical abscess without sinus; R73.9 Hyperglycemia, unspecified; E07.81 Sick-euthyroid syndrome; I10 Essential (primary) hypertension; Z80.1 Family history of malignant neoplasm of trachea, bronchus and lung; Z81.1 Family history of alcohol abuse and dependence; Z82.5 Family history of asthma and other chronic lower respiratory diseases
CPT/HCPCS: 36415; 70030-TC; 80307; 80346; 80361; 83690; 83735; 84443; 85025; 86580; 86592; 86705; 86803; 87340; 87806; 93005; G0480; J1885; J3411